=== PATIENT | male | born 1985 | race Caucasian/White ===

== ENCOUNTER 2025-02-04 21:27 | Emergency (ER) | payer OTHER ==
[~2025-02-04] VITALS: Ht 180.3 cm; Wt 112.0 kg
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
[2025-02-04] MEDS ORDERED: LACTATED RINGER'S 1,000 ML IV ONE (22:00)
[2025-02-04 22:10] LABS: BASOPHILS 0.4 % (0.2-1.2); EOSINOPHILS 0.1 % (0.8-7.0); LYMPHOCYTES 27.2 % (21.8-53.1); MCH 31.4 PG (25.7-32.2); MCHC 35.1 g/dL (32.3-36.5); MCV 89.5 fL (79.0-92.2); MONOCYTES 6.4 % (5.3-12.2); NEUTROPHILS 65.6 % (34.0-67.9); RBC 5.06 M/uL (4.63-6.08)
[2025-02-04] MEDS ORDERED: OXYCODONE HCL5 M3 (22:10)
[2025-02-04] MEDS ORDERED: CYCLOBENZAPRINE10 MG PO (22:10)
[2025-02-04 22:33] LABS: ALCOHOL, MEDICAL <3 ng/dL (<3); ALT (SGPT) 51 U/L (14-59); AST (SGOT) 26 U/L (15-37); GLOMERULAR FILTRATION RATE,EST 96 mL/min (>60); PROTEIN, TOTAL 8.3 g/dL (6.4-8.2); UREA NITROGEN 17 mg/dL (7-18)
[2025-02-04 22:50] LABS: ABO A; ANTIBODY SCREEN NEGATIVE; RH POSITIVE
[2025-02-04 23:12] LABS: BLOOD/HGB, URINE MODERATE (Negative); KETONE, URINE TRACE (Negative); LEUK ESTERASE, URINE NEGATIVE (negative); NITRITE, URINE NEGATIVE (negative)
[2025-02-04 23:18] LABS: EPITHELIAL CELLS, URINE SQUAMOUS 1+ /lpf (0-1+)
[2025-02-04 23:19] LABS: BACTERIA, URINE RARE /hpf (negative); CASTS, URINE NONE SEEN \\lpf; CRYSTALS, URINE NONE SEEN (0-1+); REFLEX CULTURE, URINE No (No)
[2025-02-04 23:35] LABS: AMPHETAMINES, URINE NEGATIVE (NEGATIVE); BARBITURATES, URINE NEGATIVE (NEGATIVE); BENZODIAZEPINE, URINE NEGATIVE (NEGATIVE); CANNABINOID, URINE POSITIVE (NEGATIVE); ECSTASY, URINE NEGATIVE (NEGATIVE); FENTANYL, URINE NEGATIVE (NEGATIVE); METHADONE, URINE NEGATIVE (NEGATIVE); OPIATES, URINE NEGATIVE (NEGATIVE); OXYCODONE, URINE POSITIVE (NEGATIVE); PHENCYCLIDINE, URINE NEGATIVE (NEGATIVE)
[2025-02-04] MEDS ORDERED: OXYCODONE HCL 5 MG TAB PO ONE (23:45)
[2025-02-04 23:59] LABS: COCAINE, URINE NEGATIVE (NEGATIVE)
[2025-02-05] MEDS ORDERED: OXYCODONE/ACETAMINOPHEN 1 TAB HOME.PACK PO ONE (00:15)
[2025-02-05 00:25] VITALS: BP 141/87
== END 2025-02-05 00:39 | disposition home or self-care (01) ==
LOC: ED 21:27
PROVIDERS: Internal Medicine
DX: S16.1XXA Strain of muscle, fascia and tendon at neck level, initial encounter (principal); S50.11XA Contusion of right forearm, initial encounter; S30.812A Abrasion of penis, initial encounter; Z98.890 Other specified postprocedural states; Z79.899 Other long term (current) drug therapy; V50.5XXA Driver of pick-up truck or van injured in collision with pedestrian or animal in traffic accident, initial encounter
CPT/HCPCS: 36415; 70450; 71045; 71260; 72125; 73090; 74177; 80053; 80307; 81001; 82550; 83690; 85025; 86850; 86900; 86901; 99284-25; A9270; G0480; J7121; Q9967